=== PATIENT | male | born 1990 | race Caucasian/White ===

== ENCOUNTER 2018-06-06 18:19 | Emergency (ER) | payer OTHER ==
[~2018-06-06] VITALS: Ht 172.7 cm; Wt 104.5 kg
[~2018-06-06 18:19] MED LIST: BENZ2TAB10 PO; CLOZ100 PO; DIVA-78 PO; DSS100 PO; ISON300 PO; LORA2TAB2 PO; OLAN10TA6 PO; OMEP20 PO; PYRI50 PO; ZOLP10TA7 PO
[2018-06-06 18:55] VITALS: BP 107/72
== END 2018-06-06 19:41 | disposition left against medical advice (07) ==
LOC: EMS 18:20
DX: R50.9 Fever, unspecified (principal); Z53.21 Procedure and treatment not carried out due to patient leaving prior to being seen by health care provider

== ENCOUNTER 2021-10-10 19:20 | Emergency (ER) | payer OTHER ==
[~2021-10-10] VITALS: Ht 170.2 cm; Wt 41.3 kg
[~2021-10-10 19:20] MED LIST changes: -BENZ2TAB10 PO; +BENZ2TAB76 PO; -CLOZ100 PO; +CLOZ100T32 PO; +DIVA-112 PO; -DIVA-78 PO; +LORA-1001 PO; -LORA2TAB2 PO; +OLAN10TA26 PO; -OLAN10TA6 PO; +PYRI-6 PO; -PYRI50 PO; -ZOLP10TA7 PO; +ZOLP10TA8 PO
[2021-10-10] MEDS ORDERED: DOCU100C33 PO (20:11)
[2021-10-10 20:25] VITALS: BP 121/76
== END 2021-10-10 21:16 | disposition home or self-care (01) ==
LOC: EMS 19:34
DX: G47.00 Insomnia, unspecified (principal); F31.9 Bipolar disorder, unspecified; F20.9 Schizophrenia, unspecified; Z91.013 Allergy to seafood; Z88.8 Allergy status to other drugs, medicaments and biological substances
CPT/HCPCS: 99283; Z7502

== ENCOUNTER 2022-05-06 12:14 | Emergency (ER) | payer MEDICAID, OTHER ==
[~2022-05-06] VITALS: Ht 167.6 cm; Wt 90.9 kg
[~2022-05-06 12:14] MED LIST changes: -CLOZ100T32 PO; +CLOZ100T68 PO; +DOCU100C33 PO; -DSS100 PO; -ISON300 PO; -PYRI-6 PO
[2022-05-06 12:16] VITALS: BP 110/70
== END 2022-05-06 15:40 | disposition home or self-care (01) ==
LOC: EMS 12:14
DX: F20.9 Schizophrenia, unspecified (principal); T75.4XXA Electrocution, initial encounter; F31.9 Bipolar disorder, unspecified; Z90.49 Acquired absence of other specified parts of digestive tract; Z91.013 Allergy to seafood; Z88.8 Allergy status to other drugs, medicaments and biological substances
CPT/HCPCS: 99281; Z7502

== ENCOUNTER 2024-10-20 10:32 | Emergency (ER) | payer OTHER ==
[~2024-10-20] VITALS: Ht 172.7 cm; Wt 118.2 kg
[2024-10-20 10:36] VITALS: BP 113/73; PULSE 96; RESP 18; TEMP 98; O2SAT 99
[2024-10-20] MEDS ORDERED: OLAN10TA74 PO (10:37)
[2024-10-20] MEDS ORDERED: DM med PO (10:40)
[2024-10-20 10:59] LABS: BASOPHILS % (AUTO) 0.5 % (0.0-2.0); EOSINOPHILS % (AUTO) 2.5 % (1.0-6.0); HEMATOCRIT 39.7 % (41-53); HEMOGLOBIN 13.1 g/dL (13.5-17.5); LYMPHOCYTES # (AUTO) 1.4 K/uL (1.0-4.8); MEAN CORPUSCULAR HEMOGLOBIN 27.3 pg (26.0-34.0); MEAN CORPUSCULAR HGB CONC 32.9 G/dL (31.0-37.0); MEAN CORPUSCULAR VOLUME 83 fL (80-100); MONOCYTES # (AUTO) 0.6 K/uL (0.1-1.0); MONOCYTES % (AUTO) 9.1 % (2.0-9.0); NEUTROPHILS # (AUTO) 4.5 K/uL (1.8-7.7); NEUTROPHILS % (AUTO) 66.9 % (40.0-70.0); PLATELET COUNT (AUTO) 276 K/uL (150-450); RED CELL DISTRIBUTION WIDTH 14.2 % (11.5-14.5); WHITE BLOOD COUNT (AUTO) 6.8 K/uL (4.5-11.0)
[2024-10-20 11:05] LABS: ANION GAP 10 mmol/L (8-16); CALCIUM, TOTAL 9.6 mg/dL (8.8-10.5); CARBON DIOXIDE 28 mmol/L (22-29); CHLORIDE 101 mmol/L (98-107); CREATININE 0.87 mg/dL (0.60-1.30); GLOMERULAR FILTR. RATE CALC > 60 mL/min (>60); GLUCOSE,RANDOM 107 mg/dL (70-110); POTASSIUM 4.2 mmol/L (3.5-5.1); SODIUM SERUM 139 mmol/L (136-145); UREA NITROGEN, BLOOD 10 mg/dL (7-18)
[2024-10-20 11:18] LABS: ALCOHOL, BLOOD (SERUM) < 3 mg/dL (0-10)
[2024-10-20 11:29] LABS: COVID AG,FIA SOURCE NASAL SWAB
[2024-10-20 11:52] LABS: ALCOHOL, URINE DRUG SCREEN NEGATIVE (NEGATIVE); AMPHET/METH SCREEN,URINE NEGATIVE (NEGATIVE); BARBITURATE SCREEN, URINE NEGATIVE (NEGATIVE); BENZODIAZEPINES SCREEN,URINE NEGATIVE (NEGATIVE); CANNABINOID SCREEN,URINE NEGATIVE (NEGATIVE); COCAINE SCREEN,URINE NEGATIVE (NEGATIVE); METHADONE SCREEN, URINE NEGATIVE (NEGATIVE); OPIATE SCREEN,URINE NEGATIVE (NEGATIVE); PHENCYCLIDINE SCREEN,URINE NEGATIVE (NEGATIVE)
[2024-10-20 12:09] LABS: SARS-COV2 (COVID) ANTIGEN,FIA Negative (Negative)
== END 2024-10-20 13:41 | disposition home or self-care (01) ==
LOC: EMS 10:33
DX: F25.9 Schizoaffective disorder, unspecified (principal); Z90.49 Acquired absence of other specified parts of digestive tract; Z20.822 Contact with and (suspected) exposure to COVID-19
CPT/HCPCS: 99284; 87426; 80048; 85025; 36415; 80307; G0480